=== PATIENT | female | born 1980 | race Caucasian/White ===

== ENCOUNTER 2016-08-30 16:25 | Emergency (ER) | payer MEDICAID ==
[2016-08-30 16:56] VITALS: BP 130/86
--- NOTE | 2016-08-30 17:31 | UC ---
Dental HPI - HPI Summary HPI Summary: Patient had tooth pulled 4 days ago. SHe is having a lot of pain, cant get to the dentist until 2 days from now. The area does not look inflammed, she is taking penicillin. there is a deep pocket noted. - History of Current Complaint Chief Complaint: UCDentalProblem Stated Complaint: ORAL Time Seen by Provider: 08/30/16 17:04 Hx Last Menstrual Period: 08/20/16 - Allergies/Home Medications Allergies/Adverse Reactions: Allergies Allergy/AdvReac Type Severity Reaction Status Date / Time No Known Allergies Allergy Verified 08/30/16 16:55 Home Medications: Home Medications Acetaminophen [Acetaminophen Extra Stren] 1,500 mg PO Q4HR PRN 08/30/16 [ History Confirmed 08/30/16] Oxycodone/ASA 5/325 (NF) [Percodan 5/325 (NF)] 1 tab PO PRN 08/30/16 [History] Penicillin VK TAB 500 MG(NF) [Penicillin VK 500 mg Tab(NF)] 500 mg PO QID [History Confirmed 08/30/16] QUEtiapine TAB* [SEROquel TAB*] 150 mg PO BEDTIME 08/30/16 [History Confirmed ] Venlafaxine EXT RELEASE CAP* [Effexor Xr CAP*] 75 mg PO DAILY 08/30/16 [History Confirmed 08/30/16] PMH/Surg Hx/FS Hx/Imm Hx Previously Healthy: Yes Respiratory History Of: Reports: Asthma - Surgical History Surgical History: Yes Surgery Procedure, Year, and Place: ORIF right ankle fracture. Adenoidectomy. C Section - Family History Known Family History: Positive: Hypertension, Diabetes - Social History Alcohol Use: Rare Substance Use Type: None Smoking Status (MU): Heavy Every Day Tobacco Smoker Type: Cigarettes Amount Used/How Often: 1 PPD Length of Time of Smoking/Using Tobacco: began smoking at age 13 Have You Smoked in the Last Year: Yes Household Exposure Type: Cigarettes Review of Systems Constitutional: Negative Skin: Negative Eyes: Negative ENT: Dental Pain Respiratory: Negative Cardiovascular: Negative Gastrointestinal: Negative Genitourinary: Negative Motor: Negative Neurovascular: Negative Musculoskeletal: Negative Neurological: Negative Psychological: Negative All Other Systems Reviewed And Are Negative: Yes Physical Exam Triage Information Reviewed: Yes Appearance: Well-Nourished, Ill-Appearing, Pain Distress Vital Signs: Initial Vital Signs Temp 98.1 F 08/30/16 16:47 Pulse 75 08/30/16 16:47 Resp 16 08/30/16 16:47 BP 130/86 08/30/16 16:47 Pulse Ox 99 08/30/16 16:47 Vital Signs Reviewed: Yes Eye Exam: Normal Eyes: Positive: Conjunctiva Clear ENT Exam: Normal ENT: Positive: Normal ENT inspection, Pharynx normal, TMs normal Dental: Positive: Gross Decay/Caries @, Dental Fracture @, Other: - open socket noted in posterior left jaw Neck exam: Normal Neck: Positive: Supple, Nontender, No Lymphadenopathy Respiratory Exam: Normal Respiratory: Positive: Chest non-tender, Lungs clear, Normal breath sounds Cardiovascular Exam: Normal Cardiovascular: Positive: RRR, No Murmur, Pulses Normal Abdominal Exam: Normal Abdomen Description: Positive: Nontender, No Organomegaly, Soft Bowel Sounds: Positive: Present Musculoskeletal Exam: Normal Musculoskeletal: Positive: Strength Intact, ROM Intact, No Edema Neurological Exam: Normal Neurological: Positive: Alert, Muscle Tone Normal Psychological Exam: Normal Skin Exam: Normal Dental Complaint Course/Dx - Course Course Of Treatment: hx obtained, exam performed, meds reviewed. I-stop consulted. talked to patient whose main concern was pain, given 2 days of pain medication to make it to her appointment at the dentist. - Differential Dx/Diagnosis Differential Diagnosis/Dx: Fractured Tooth, Gingivitis, Post Extraction Pain Provider Diagnoses: post extraction pain Discharge - Discharge Plan Condition: Stable Disposition: HOME Prescriptions: oxyCODONE/Acetamin 5/325 MG* [Percocet 5/325 TAB*] 1 tab PO Q6H PRN #8 tab MDD 4 tabs PRN Reason: Pain Patient Education Materials: Toothache (ED) Additional Instructions: take the medication as directed, follow up with the dentist on tuesday.
== END 2016-08-30 17:43 | disposition home or self-care (01) ==
LOC: UCCORT 16:25
DX: K08.409 Partial loss of teeth, unspecified cause, unspecified class (principal); F17.210 Nicotine dependence, cigarettes, uncomplicated
CPT/HCPCS: 99212; G0463

== ENCOUNTER 2016-12-15 18:27 | Emergency (ER) | payer MEDICAID ==
[2016-12-15 19:14] VITALS: BP 122/56
--- NOTE | 2016-12-15 19:25 | UC ---
Back Pain HPI - HPI Summary HPI Summary: The patient comes in today for: 1. Lower back pain: Onset: 3-4 days ago. Palliative/provocative: Nothing makes it better or worse. Quality: Sharp and ache Region: Lower back Severity: 9/10 Time: Constant. Associated symptoms: Chronic back pain: She has had a history of this even to the point of going to the [facility] in [place]. She was on medications and getting physical therapy. PCP: Dr. Johnson. Event: She was moving furniture around the home 3-4 days ago. Usually, Tylenol has helped in the past. Infections/fevers: NOne. Cancers/unexpected weight loss. IV drugs: none She has had problems in the past with the most recent event was "a couple weeks ago." Previous treatment: Ibuprofen (600 mg tid), lidocaine patch, Tylenol Sciatica: None. Numbness/weakness: None. Bowel/bladder incontinence: None. * - History of Current Complaint Chief Complaint: UCBackPain Stated Complaint: LOW BACK PAIN Time Seen by Provider: 12/15/16 19:18 Hx Obtained From: Patient Hx Last Menstrual Period: 12/11/16 - Allergies/Home Medications Allergies/Adverse Reactions: Allergies Allergy/AdvReac Type Severity Reaction Status Date / Time No Known Allergies Allergy Verified 12/15/16 19:04 PMH/Surg Hx/FS Hx/Imm Hx Previously Healthy: No - insomnia. Psychological History: Depression - Surgical History Surgical History: Yes Surgery Procedure, Year, and Place: ORIF right ankle fracture. Adenoidectomy. C Section. RIGHT HAND TENDON REPAIR - Family History Known Family History: Positive: Hypertension, Diabetes - Social History Occupation: Unemployed Lives: With Family Alcohol Use: Rare Substance Use Type: None Smoking Status (MU): Heavy Every Day Tobacco Smoker Type: Cigarettes Amount Used/How Often: 1 PPD Length of Time of Smoking/Using Tobacco: began smoking at age 13 Have You Smoked in the Last Year: Yes Household Exposure Type: Cigarettes Review of Systems Constitutional: Negative Skin: Negative Eyes: Negative ENT: Negative Respiratory: Negative Cardiovascular: Negative Gastrointestinal: Abdominal Pain - She has some lower abdominal pain recently, but no problems GI/Gu symptoms. Genitourinary: Negative Musculoskeletal: Arthralgia All Other Systems Reviewed And Are Negative: Yes Physical Exam Triage Information Reviewed: Yes Appearance: Well-Appearing, No Pain Distress - while sitting., Obese Vital Signs: Initial Vital Signs Temp 98.3 F 12/15/16 18:59 Pulse 73 12/15/16 18:59 Resp 16 12/15/16 18:59 BP 122/56 12/15/16 18:59 Pulse Ox 99 12/15/16 18:59 Vital Signs Reviewed: Yes Eyes: Positive: Conjunctiva Clear. Negative: Discharge ENT: Positive: Hearing grossly normal. Negative: Pharyngeal erythema, Nasal congestion, Nasal drainage, TM bulging, TM dull, TM red, Tonsillar swelling, Tonsillar exudate Dental: Negative: Gross Decay/Caries @, Dental Fracture @ Neck: Positive: Supple, Nontender, No Lymphadenopathy. Negative: Nuchal Rigidity Respiratory: Positive: Lungs clear, No respiratory distress, No accessory muscle use. Negative: Crackles, Wheezing Cardiovascular: Positive: RRR, No Murmur Abdomen Description: Positive: Nontender, No Organomegaly, Soft. Negative: Distended, Guarding Musculoskeletal: Positive: No Edema, Other: - Back: Minimal psychomotor slowing and slight guarding with movement. There is tenderness to palpation of the right and left lumbar paraspinal muscles. There is no CVA tenderness. ROM was good. Neurological: Positive: Alert, Muscle Tone Normal Psychological: Positive: Age Appropriate Behavior, Consolable Skin: Negative: rashes, breakdown Back Pain Course/Dx - Differential Dx/Diagnosis Provider Diagnoses: Lower back pain Discharge - Discharge Plan Condition: Stable Disposition: HOME Patient Education Materials: Low Back Strain (ED) Referrals: Yanely Ryan MD [Primary Care Provider] - 1 Week (Please see your primary care provider in about one to two weeks to see how well you are doing. If you get worse, please be seen sooner.)
== END 2016-12-15 19:50 | disposition home or self-care (01) ==
LOC: UCCORT 18:27
DX: M54.5 Low back pain (principal); F17.210 Nicotine dependence, cigarettes, uncomplicated
CPT/HCPCS: 99212; G0463

== ENCOUNTER 2017-01-12 17:47 | Emergency (ER) | payer MEDICAID ==
[2017-01-12 17:59] VITALS: BP 121/84
--- NOTE | 2017-01-12 18:40 | UC ---
Back Pain HPI - HPI Summary HPI Summary: SEEN 12/15/16 FOR ACUTE ON CHRONIC BACK PAIN. HAS HISTORY OF CHRONIC BACK PAIN MANAGED BY PAIN CLINIC. TWO DAYS AGO SET UP AND SLEPT ON PULL-OUT COUCH, BACK PAIN FLARED UP AGAIN. HAS APPOINTMENT WITH PRIMARY CARE ON TUESDAY TO TALK ABOUT BACK PAIN. - History of Current Complaint Chief Complaint: UCBackPain Stated Complaint: LOW BACK PAIN Time Seen by Provider: 01/12/17 17:50 Hx Obtained From: Patient Hx Last Menstrual Period: 01/07/17 Onset/Duration: Sudden Onset, Lasting Days, Still Present Timing: Intermittent, Lasting Days Severity Initially: Moderate Severity Currently: Moderate Character: Dull, Aching, Throbbing, Spasmodic, Stiffness Aggravating: Movement, Bending Alleviating: Rest, Position Associated Signs And Symptoms: Negative: Numbness, Tingling, Flank Pain, Bladder Incontinence, Bowel Incontinence, Weight Loss, Pain with Weight Bearing Related History: Similar Episode Dx As - Risk Factors AAA Risk Factors: Negative TAD Risk Factors: Negative Cauda Equina Risk Factors: Negative Epidural Abscess Risk Factors: Negative - Allergies/Home Medications Allergies/Adverse Reactions: Allergies Allergy/AdvReac Type Severity Reaction Status Date / Time No Known Allergies Allergy Verified 01/12/17 17:59 PMH/Surg Hx/FS Hx/Imm Hx Previously Healthy: Yes - Surgical History Surgical History: Yes Surgery Procedure, Year, and Place: ORIF right ankle fracture. Adenoidectomy. C Section. right hand tendon repair - Family History Known Family History: Positive: Hypertension, Diabetes - Social History Lives: With Family Alcohol Use: Rare Substance Use Type: None Smoking Status (MU): Heavy Every Day Tobacco Smoker Type: Cigarettes Amount Used/How Often: 1 PPD Length of Time of Smoking/Using Tobacco: began smoking at age 13 Have You Smoked in the Last Year: Yes Household Exposure Type: Cigarettes Cessation Counseling: Patient Advised to Stop Review of Systems Constitutional: Negative Skin: Negative Eyes: Negative ENT: Negative Respiratory: Negative Cardiovascular: Negative Gastrointestinal: Negative Genitourinary: Negative Motor: Negative Neurovascular: Negative Musculoskeletal: Arthralgia, Myalgia Neurological: Negative Psychological: Negative All Other Systems Reviewed And Are Negative: Yes Physical Exam Triage Information Reviewed: Yes Appearance: Well-Appearing, Well-Nourished, Pain Distress - MILD, Obese Vital Signs: Initial Vital Signs Temp 98.4 F 01/12/17 17:56 Pulse 86 01/12/17 17:56 Resp 17 01/12/17 17:56 BP 121/84 01/12/17 17:56 Pulse Ox 100 01/12/17 17:56 Eye Exam: Normal ENT Exam: Normal ENT: Positive: Normal ENT inspection Dental Exam: Normal Neck exam: Normal Neck: Positive: Supple, Nontender, No Lymphadenopathy Respiratory Exam: Normal Respiratory: Positive: Chest non-tender, Lungs clear, Normal breath sounds, No respiratory distress Cardiovascular Exam: Normal Cardiovascular: Positive: RRR, No Murmur, Pulses Normal Abdominal Exam: Normal Abdomen Description: Positive: Nontender, No Organomegaly. Negative: Soft, CVA Tenderness (R), CVA Tenderness (L) Musculoskeletal: Positive: Strength Intact, ROM Intact, No Edema, Other: - RIGHT SIDE POSITIVE STRAIGHT LEG RAISE TEST Neurological Exam: Normal Psychological Exam: Normal Skin Exam: Normal Back Pain Course/Dx - Differential Dx/Diagnosis Differential Diagnosis/HQI/PQRI: Strain, Sprain Provider Diagnoses: ACUTE ON CHRONIC LOW BACK PAIN Discharge - Discharge Plan Condition: Stable Disposition: HOME Prescriptions: Baclofen TAB* [Lioresal TAB*] 5 mg PO TID PRN #10 tab PRN Reason: Spasms HYDROcodone/ACETAMIN 5-325 MG* [Watson 5-325 TAB*] 1 tab PO BID #8 tab MDD two tabs Patient Education Materials: Low Back Strain (ED), Muscle Spasm (ED), Chronic Back Pain (ED) Referrals: Ramirez Johnson PA [Primary Care Provider] - Yanely Ryan MD [Medical Doctor] - Additional Instructions: YOU HAVE HAD TWO VISITS FOR ACUTE ON CHRONIC BACK PAIN IN THE LAST TWO MONTHS; IT IS IMPORTANT THAT YOU FOLLOW UP WITH YOUR PRIMARY CARE PHYSICIAN FOR MANAGEMENT OF YOUR BACK PAIN. PHYSICAL THERAPY REFERRAL: You have been prescribed physical therapy. Treatments may include stretching, exercise, application of heat or cold, and other modalities. After an injury, PT can reduce swelling and pain. In recovery, PT is used to restore mobility and strength. Your specific treatment goals are: Reduction of Swelling (EGS, US, ice as needed) ___X__ Pain Reduction (EGS, US, ice as needed) __X___ TENS Pack Fitting and Instruction Wound Hydrotherapy ___X__ Preservation of Mobility ___X__ Pentecostalism of Mobility ___X__ Strength Pentecostalism ___X__ Work or Sports Hardening This instruction sheet also serves as your PHYSICAL THERAPY REFERRAL! Please take it with you to the therapist, so he/she will be aware of your diagnosis and treatment plan. You may see the physical therapist of your choice for these treatments, but may wish to check with your insurance to be sure the provider you select is covered. It's important to see the doctor to whom you have been referred for follow up.
== END 2017-01-12 18:38 | disposition home or self-care (01) ==
LOC: UCCORT 17:47
DX: M54.5 Low back pain (principal); G89.29 Other chronic pain; Z87.891 Personal history of nicotine dependence
CPT/HCPCS: 81003; 99212; G0463

== ENCOUNTER 2019-09-23 09:10 | Emergency (ER) | payer OTHER ==
[2019-09-23 09:47] VITALS: BP 105/63
--- NOTE | 2019-09-23 09:58 | UC ---
Eye Complaint HPI - HPI Summary HPI Summary: Patient is 38 year old female , who presents today to the urgent care with right eye irritation and discharge for past 7 days which is progressively got worse over the past day or so. She reports she started noticing irritation and now the discharge is noticed which causes stickiness of the right eye.. Denies any visual disturbance. No history of contact lens use. She does not recall any foreign body falling into the eye but describes it as sand or dirt in her eye. No fever or chills reported. - History of Current Complaint Chief Complaint: UCEye Stated Complaint: RIGHT EYE Time Seen by Provider: 09/23/19 09:35 Hx Last Menstrual Period: 09/16/19 ?: No Pain Intensity: 0 - Allergies/Home Medications Allergies/Adverse Reactions: Allergies Allergy/AdvReac Type Severity Reaction Status Date / Time No Known Allergies Allergy Verified 09/23/19 09:47 Home Medications: Home Medications Ibuprofen TAB* [Motrin TAB* 600 MG] 600 mg PO TID PRN 08/15/17 [History Confirmed 09/23/19] Baclofen TAB* [Lioresal TAB*] 10 mg PO TID PRN 06/08/18 [History Confirmed 09/22] Quetiapine Fumarate [Seroquel Xr 150 MG Tab.Er.24h] 150 mg PO BEDTIME 06/08/18 [ History Confirmed 09/23/19] Tramadol HCl [Ultram] 100 mg PO Q4H PRN MDD 6 06/08/18 [History Confirmed ] Venlafaxine EXT RELEASE CAP(NF [Effexor Xr CAP 225 MG (NF)] 225 mg PO DAILY 02/05 [History Confirmed 09/23/19] metFORMIN* [Glucophage 1000 MG TAB *] 1,000 mg PO BID 09/25/18 [History Confirmed 09/23/19] Gabapentin CAP(*) [Neurontin 400 mg CAP(*)] 400 mg PO QID 04/13/19 [History Confirmed 09/23/19] Buprenorphine HCl [Belbuca] 75 mcg BC BID 08/06/19 [History Confirmed 09/23/19] Erythromycin OPTH OINT* [Erythromycin 0.5% OPTH OINT*] 1 applic RIGHT EYE QID 7 Days #1 ophth.oint 09/23/19 [Rx] PMH/Surg Hx/FS Hx/Imm Hx - Additional Past Medical History Additional PMH: Past Medical History : Asthma Past Surgical History: ORIF(right ankle), adenoidectomy, , right hand tendon repair Family History : Liver cancer, heart disease Social History : no alcohol, daily smoker, no drug use. Previously Healthy: Yes - Surgical History Surgical History: Yes Surgery Procedure, Year, and Place: ORIF right ankle fracture. Adenoidectomy. C Section. right hand tendon repair - Family History Known Family History: Positive: Hypertension, Diabetes, Other - Liver cancer, heart disease - Social History Alcohol Use: None Substance Use Type: None Smoking Status (MU): Current Every Day Smoker Type: Cigarettes Amount Used/How Often: 1/2 PPD Length of Time of Smoking/Using Tobacco: began smoking at age 13 Have You Smoked in the Last Year: Yes Household Exposure Type: Cigarettes Review of Systems All Other Systems Reviewed And Are Negative: Yes Constitutional: Positive: Negative Skin: Positive: Negative Eyes: Positive: Drainage, Eye Redness ENT: Positive: Negative Respiratory: Positive: Negative Cardiovascular: Positive: Negative Gastrointestinal: Positive: Negative Genitourinary: Positive: Negative Motor: Positive: Negative Neurovascular: Positive: Negative Musculoskeletal: Positive: Negative Neurological/Mental Status: Positive: Negative Psychological: Positive: Negative Is Patient Immunocompromised?: No Physical Exam - Summary Physical Exam Summary: Vital Signs Reviewed: Yes A+Ox3, no distress Eyes: right eye: EOM and PERRLA. No pain with extraocular motion. mild erythema noted. No foreign body was visualized. With fluorescein staining there was a small dot-like abrasion at 9 o'clock position along with irregular abrasion at 6 o'clock position. Left eyre ENT: Hearing grossly normal neck: supple Respiratory: Positive: No respiratory distress, No accessory muscle use Cardiovascular: skin color reflect adequate perfusion Musculoskeletal Exam: FARRIS x 4 without difficulty Neurological: Positive: Alert, ambulatory without difficulty Psychological: Positive: Normal Response To Family Skin: Positive: no rash, no ecchymosis Triage Information Reviewed: Yes Vital Signs: Initial Vital Signs Temp 97.4 F 09/23/19 09:43 Pulse 74 09/23/19 09:43 Resp 18 09/23/19 09:43 BP 105/63 09/23/19 09:43 Pulse Ox 97 09/23/19 09:43 Vital Signs Reviewed: Yes Procedures - Eye Procedure Right Alcaine Drops Administered: No - 0.5 % tetracaine Eye FB Removal: other - no foreign body identified. Eye Complaint Course/Dx - Course Course Of Treatment: During the visit today by to anesthetized with 0.5% tetracaine. No foreign body was visualized. With fluorescein staining there was a small dot-like abrasion at 9 o'clock position along with irregular abrasion at 6 o'clock position. Discussed care and treatment with erythromycin eye ointment. Advised her to follow up with her tar man in 2-3 days if no improvement. She sees Dr. Guerra in [place]. - Differential Dx/Diagnosis Provider Diagnosis: Corneal abrasion, right Discharge ED - Sign-Out/Discharge Documenting (check all that apply): Patient Departure All imaging exams completed and their final reports reviewed: No Studies - Discharge Plan Condition: Stable Disposition: HOME Prescriptions: Erythromycin OPTH OINT* [Erythromycin 0.5% OPTH OINT*] 1 applic RIGHT EYE QID 7 Days #1 ophth.oint Patient Education Materials: Corneal Abrasion (ED) Forms: *Work Release Referrals: Ramirez Johnson PA [Primary Care Provider] - Charlie GUTIERREZ,[place] [Medical Doctor] - 3 Days Additional Instructions: Please start taking the medication as prescribed to the pharmacy . Follow up with your tar man if no better over next 2-3 days Return to Urgent care / ER if symptoms get worse. - Billing Disposition and Condition Condition: STABLE Disposition: Home
[2019-09-23] MEDS ORDERED: Fluorescein Sodium TOPICAL* 1 MG TEST STRIP OPHTHALMIC ONE (10:03)
[2019-09-23] MEDS ORDERED: Tetracaine 0.5% OPTH.SOL 4 ML* 1 DROP BTL RIGHT EYE ONE (10:10)
[2019-09-23] MEDS ORDERED: Tetracaine 0.5% OPTH.SOL 4 ML* 1 DROP BTL RIGHT EYE SCH (10:30)
== END 2019-09-23 10:40 | disposition home or self-care (01) ==
LOC: UCCORT 09:10
DX: S05.01XA Injury of conjunctiva and corneal abrasion without foreign body, right eye, initial encounter (principal); X58.XXXA Exposure to other specified factors, initial encounter; Y92.9 Unspecified place or not applicable; F17.210 Nicotine dependence, cigarettes, uncomplicated
CPT/HCPCS: 99212; A9270-GY; G0463